=== PATIENT | female | born 1960 | race Caucasian/White ===

== ENCOUNTER 2025-01-23 20:44 | Emergency (ER) | payer MEDICARE, OTHER ==
[2025-01-23] MEDS: Bacitracin Oint 1 GM U/D Packet TOP ONE (21:25)
[2025-01-23] MEDS: Lidocaine 1% with EPINEPHrine 1:100,000 20 ML MDV INJECT ONE (21:25)
== END 2025-01-23 22:12 | disposition home or self-care (01) ==
LOC: JP.ED 20:44
DX: S51.812A Laceration without foreign body of left forearm, initial encounter (principal); E78.00 Pure hypercholesterolemia, unspecified; E03.9 Hypothyroidism, unspecified; Z87.891 Personal history of nicotine dependence; Z88.6 Allergy status to analgesic agent; Z79.890 Hormone replacement therapy; Z79.899 Other long term (current) drug therapy; W22.8XXA Striking against or struck by other objects, initial encounter; Y93.89 Activity, other specified
CPT/HCPCS: 12002; 99282; 99283; J2004